=== PATIENT | male | born 2000 | race Caucasian/White ===

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

== ENCOUNTER 2018-04-30 04:22 | Emergency (ER) | payer OTHER, SELFPAY ==
[2018-04-30 04:23] VITALS: BP 138/74; PULSE 99; RESP 16; TEMP 36.9; O2SAT 96; BMI 25.1
--- NOTE | 2018-04-30 04:49 | ED.DCSUM_ITS ---
- ER Visit Summary Date of Service: 04/30/18 Chief Complaint: left ear pain, bleeding History of Present Illness: The patient is a 17 M who presents for 1 day of left ear pain. She states he was at work tonight, working third shift, and noted that his left ear was painful, worsened by the noise at work. He put a finger in his ear and when he took it out there was blood on it. Patient states he has had decreased hearing for the last year and has a long history of chronic ear issues, having had tubes in his ears at the age of 11. He denies any fever, sore throat, rhinorrhea, neck pain, cough, shortness of breath or any other complaints other than the left ear pain. Physical Examination: Vital signs: afebrile, hemodynamically stable, no hypoxia on room air General: well nourished, well developed, in no distress Skin: warm, dry, no rash, no pallor HEENT: normocephalic and atraumatic; PERRL, EOMI, moist mucous membranes, is supple with full active range of motion, no lymphadenopathy; right TM is normal , patient has pain with movement of the external left ear, external ear canal is swollen and macerated with mild erythema, TM is bulging, mildly erythematous with white mass behind it, either guarding, cholesteatoma or pus. Remainder of exam unremarkable. Cardiovascular: regular rate and rhythm without murmurs, no peripheral edema, 2 + pulses all distal extremities Respiratory: No increased work of breathing, lungs are clear to auscultation bilaterally, no rales, rhonchi or wheezing MSK: Moves all extremities, no deformities, normal strength Neuro: Awake and alert, oriented ?4. No facial droop, sensation and motor function intact and symmetric Test Results: [] Emergency Department Course and Treatment: Patient has significant history of chronic ear issues, stating he has had decreased hearing in his ears for over a year now. The supports that patient may have scarring or cholesteatoma of the left eardrum. However he has findings consistent with acute otitis externa, and the appearance of the tympanic membrane is concerning for possible acute otitis media, as the presence of pus behind the eardrum cannot be ruled out. There was no sign of drum rupture. Patient was prescribed antibiotic eardrops for the acute otitis externa. Because of the concern for otitis media, patient was placed on amoxicillin. Patient was strongly encouraged to follow-up with ENT for further evaluation of his ear, especially given that he has had the gradual loss of hearing over the last year. Patient agreed with this plan was discharged home. Treatment Plan: [] Disposition: [] Impression: Left acute otitis externa, left acute otitis media This note was generated with [employer] dictation software. It may contain incorrect words, spelling, and punctuation that were not noted in review of the chart prior to signing ED Disposition - Plan for ED Patient: Disposition: Home or Assisted Living Chief Complaint: Ear Problem Instructions: ED Otitis Media Acute Adult, ED Otitis Externa Prescriptions: Amoxicillin 500 mg PO TID #20 tab Referrals: Jonathan Kee MD [STAFF PHYSICIAN] - 1 Week if not improving Care Physician,No Primary [Primary Care Provider] - Additional Instructions: Your examination showed infection of your left ear canal, which is being treated with antibiotic drops. Use the drops as directed 4 times a day for 7 days. You also have concerning findings for ear infection behind your eardrum. Take the amoxicillin 3 times daily for 7 days as directed, and complete the entire prescription even if you feel better before it is done. Follow-up with the ear nose throat doctor on this paperwork for reevaluation, especially given your history of losing hearing in that ear. If you have any worsening of your condition or any new concerning symptoms, please return immediately to the emergency department for another evaluation.
[2018-04-30] MEDS: Neomycin Sulfate/Polymyxin/Hc Susp 10 ML Bottle 4 DRP OTIC (04:54)
[2018-04-30] MEDS: AMOXICILLIN 500 MG CAPSULE PO (04:54)
[2018-04-30 05:06] VITALS: RESP 17
== END 2018-04-30 05:06 | disposition home or self-care (01) ==
PROVIDERS: Emergency Provider Emergency Medicine
DX: H66.92 Otitis media, unspecified, left ear (principal); H60.502 Unspecified acute noninfective otitis externa, left ear
CPT/HCPCS: 99283

== ENCOUNTER 2018-07-11 16:13 | Emergency (ER) | payer SELFPAY ==
[2018-07-11 16:15] VITALS: BP 122/76; PULSE 81; RESP 18; TEMP 36.1; O2SAT 98; BMI 24.3
[2018-07-11] MEDS: Bupivacaine 0.5%/Epi 1.8 ML Syringe INFILT (16:34)
--- NOTE | 2018-07-11 16:56 | ED.VISSUMM ---
- ER Visit Summary Date of Service: 07/11/18 Chief Complaint: Jaw pain and swelling History of Present Illness: The patient is a 17 M who has been seen at outside facility and attempt was made at I&D dental abscess. Patient states unsuccessful. He was prescribed [place], Naprosyn and amoxicillin. He denies fever, chills or night sweats. He denies history of rheumatic fever, murmur, SPE, IV drug use or being immune suppressed. He denies inability to open or close his mouth completely. He denies change in voice. He denies difficulty swallowing and no respiratory symptoms. He denies rash. He denies headache. He does complain of right-sided jaw pain. Physical Examination: Vital signs noted. He is afebrile. There is swelling of the jaw on the right side, body of the mandible. There is no trismus. There is evidence of prior dental work. He reports he had dental work in February he did not complete the dental work. There is a dental abscess noted buccal side of the right first molar. There is no evidence of Mario's angina. There is submandibular lymphadenopathy. Trachea is midline. There is no stridor. Heart is regular without murmur, gallop or rub. Lungs are clear to auscultation. Test Results: None were obtained Emergency Department Course and Treatment: A dental block was placed using 1.8 cc of Carbocaine. A right inferior alveolar nerve block was placed. The abscess was incised with drainage of purulent material. Treatment Plan: We will change antibiotic to clindamycin, which is the drug of choice for dental infection. Disposition: Outpatient follow-up with dentist. Impression: 1. Dental abscess 2. Alveolar nerve block 3. I&D of dental abscess This note was generated with [employer] dictation software. It may contain incorrect words, spelling, and punctuation that were not noted in review of the chart prior to signing ED Disposition - Plan for ED Patient: Disposition: Home or Assisted Living Chief Complaint: Dental Instructions: Dental Abscess Prescriptions: Clindamycin [Cleocin] 300 mg PO 4X/DAY #80 cap Referrals: Care Physician,No Primary [Primary Care Provider] -
[2018-07-11 17:22] VITALS: BP 126/82; PULSE 78; RESP 16; O2SAT 98
== END 2018-07-11 17:23 | disposition home or self-care (01) ==
PROVIDERS: Emergency Provider Emergency Medicine
DX: K04.7 Periapical abscess without sinus (principal); K02.9 Dental caries, unspecified
CPT/HCPCS: 41800; 64402; 99282

== ENCOUNTER 2019-04-29 11:26 | Emergency (ER) | payer SELFPAY ==
[2019-04-29 11:27] VITALS: BP 149/77; PULSE 98; RESP 18; TEMP 36.4; O2SAT 100; BMI 28.2
--- NOTE | 2019-04-29 12:07 | ED.VISSUMM ---
- ER Visit Summary Date of Service: 04/29/19 Chief Complaint: Ear pain History of Present Illness: The patient is a 18 M who notes drainage from the ear and decreased hearing. States that he was working on his exhaust system of his vehicle and his body was revving the engine and he was videotaping. He noted pain at that time. Physical Examination: Afebrile vital signs stable Gen: Well-nourished well-developed Head: Normocephalic atraumatic Eyes: Perrl EOMI ENT: Right tympanic membrane is ruptured. There is erythema and swelling of the canal. The tympanic membrane itself is bulging erythematous but has fluid coming from the 4 o'clock position clear no rhinorrhea moist mucous membranes Neck: Supple no lymphadenopathy no JVD nontender CVS: Regular rate rhythm no murmurs normal S1-S2 Respiratory: No distress clear to auscultation bilaterally chest nontender Abdomen: Soft nontender nondistended normal bowel sounds no masses Back: Nontender Extremity: Nontender no edema Skin: Normal color no rash Neuro: alert orientated ?3 CN II-XII intact normal strength sensation Psych: Normal affect normal mood Emergency Department Course and Treatment: Patient will be started on Augmentin and Ciprodex. Follow-up with ENT if not improved Impression: 1. Perforated tympanic membrane on the right This note was generated with [employer] dictation software. It may contain incorrect words, spelling, and punctuation that were not noted in review of the chart prior to signing ED Disposition - Plan for ED Patient: Disposition: Home or Assisted Living Instructions: RUPTURED TM, Infected (Adult), EXTERNAL EAR INFECTION (Adult) Prescriptions: Amox/Clavulanate Tablet [Augmentin Tablet] 875 mg PO Q12H #20 tab Prescription Printed Ciprofloxacin HCl/Dexameth [Ciprodex Otic Suspension] 4 drp OTIC (EAR) BID 7 Days #1 bottle Prescription Printed Referrals: Sony Gonzalez MD [STAFF PHYSICIAN] - 1 Week
== END 2019-04-29 12:26 | disposition home or self-care (01) ==
PROVIDERS: Emergency Provider Emergency Medicine
DX: H60.91 Unspecified otitis externa, right ear (principal); H66.91 Otitis media, unspecified, right ear; H72.91 Unspecified perforation of tympanic membrane, right ear; Z72.0 Tobacco use
CPT/HCPCS: 99282

== ENCOUNTER 2020-05-17 18:44 | Emergency (ER) | payer SELFPAY ==
[2020-05-17 18:45] VITALS: BP 160/76; PULSE 96; RESP 15; TEMP 36.3; O2SAT 98; BMI 27.7
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
[2020-05-17] MEDS: Ondansetron 4 MG/2 ML Vial IM (19:03)
== END 2020-05-17 19:54 | disposition home or self-care (01) ==
PROVIDERS: Emergency Provider Student in an Organized Health Care Education/Training Program
DX: S16.1XXA Strain of muscle, fascia and tendon at neck level, initial encounter (principal); S20.219A Contusion of unspecified front wall of thorax, initial encounter; S61.411A Laceration without foreign body of right hand, initial encounter; Y04.2XXA Assault by strike against or bumped into by another person, initial encounter; Y93.9 Activity, unspecified; Y92.9 Unspecified place or not applicable; Y99.9 Unspecified external cause status; F17.200 Nicotine dependence, unspecified, uncomplicated
CPT/HCPCS: 70450; 71045; 72125; 96372; 99282; J2405

== ENCOUNTER 2020-06-04 12:59 | Emergency (ER) | payer SELFPAY ==
[2020-06-04 13:01] VITALS: BP 136/92; PULSE 86; RESP 18; TEMP 36.2; O2SAT 98; BMI 30.8
--- NOTE | 2020-06-04 14:23 | ED.VIS.GEN ---
History of Present Illness Chief Complaint: Dental Informant: Patient Onset: Month(s) - 1 Narrative: On and off recurrent left lower dental pain for the past month. Hot and cold sensitivities. No fevers. Tobacco history. Similar issues in the past. He states he does have a dentist which he followed for extraction of the right lower tooth previously however due to COVID unable to get in to do the left side. States symptoms really act up last evening. Denies any difficulty swallowing. Denies any allergies. Reports penicillins did not work given his previously placed on clindamycin. Prior similar symptoms: Yes Past Medical History - Allergies and Home Meds Allergies/Adverse Reactions: Allergies No Known Allergies Allergy (Verified 05/17/20 18:44) Primary Care Physician: Care Physician,No Primary [Primary Care Provider] - Past Medical History: None Smoking Status: Current every day smoker Review of Systems General: Denies: Chills, Fever, Sweats Eyes: Denies: Visual changes - bilaterally, Diplopia ENT: Reports: - - Dental pain. Denies: Rhinorrhea, Sore throat Cardiovascular: Denies: Chest pain, Palpitations Respiratory: Denies: Dyspnea, Cough, Dyspnea on exertion Gastrointestinal: Denies: Abdominal pain, Nausea, Vomiting, Diarrhea, Melena, Hematochezia Genitourinary: Denies: Dysuria, Hematuria, Frequency Musculoskeletal: Denies: Back pain, Extremity Pain Skin: Denies: Rash, Wounds Neurological: Denies: Headache, Weakness, Numbness Physical Exam Vital Signs/Narrative: Vital Signs Temp Pulse Resp BP Pulse Ox 06/04/20 13:01 97.2 F L 86 18 136/92 H 98 Inital Vital Signs reviewed: Yes General: Well nourished, Well developed, No Acute Distress Head: Normocephalic, Atraumatic Eyes: Perrl, EOMI ENT: Moist mucous membranes, No rhinorrhea, - - There is focal dental carry tooth #21, there is very minimal fluctuance. There is no sublingual edema. Airway patent. Tooth was tender to palpation. Neck: Supple, Nontender, No lymphadenopathy Cardiovascular: Regular rate, Regular rhythm, No murmurs Respiratory: No distress, CTA bilaterally, Chest nontender Abdomen: Soft, Nontender, Nondistended, Normal bowel sounds Back: Nontender, Normal Inspection Extremities: Nontender, No edema Skin: Normal color, No rash Neurological: Alert, Oriented x3, Cranial nerves II-XII grossly intact, Normal Strength, Normal Sensation Psychological: Normal affect, Normal Mood Diagnostic/Tx/Re-eval Patient vitals stable, discussed probably very early abscess at this time. Culprit will be tooth #21. He does have a dentist. He states he would like to try antibiotics. Prescription for clindamycin and ibuprofen written. He will call his dentist for follow-up and definitive care. He will return if any worsening symptoms. All questions were answered. ED Disposition - Plan for ED Patient: Disposition: Home or Assisted Living Diagnosis: Dental abscess Instructions: Dental Abscess Prescriptions: Clindamycin [Cleocin] 450 mg PO TID #90 cap Transmission Status: [id number] Ibuprofen [Motrin] 600 mg PO Q6H PRN PRN #20 tab PRN Reason: Pain Or Fever Transmission Status: [id number] Referrals: Care Physician,No Primary [Primary Care Provider] - Additional Instructions: Call your dentist for follow up and definitive care.
[2020-06-04 15:03] VITALS: RESP 18
== END 2020-06-04 14:32 | disposition home or self-care (01) ==
LOC: ED 14:40
PROVIDERS: Emergency Provider Emergency Medicine
DX: K04.7 Periapical abscess without sinus (principal); F17.200 Nicotine dependence, unspecified, uncomplicated
CPT/HCPCS: 99282

== ENCOUNTER 2020-06-19 07:09 | Emergency (ER) | payer SELFPAY ==
[2020-06-19 07:10] VITALS: BP 149/102; PULSE 100; RESP 17; TEMP 36.4; O2SAT 100; BMI 30.8
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
--- NOTE | 2020-06-19 07:20 | ED.VISSUMM ---
- ER Visit Summary Date of Service: 06/19/20 Chief Complaint: Left flank pain History of Present Illness: The patient is a 19 M with no primary care physician. He reports the abrupt onset of left flank pain approximate 20 minutes ago. The sharp pain that was 10 on 10 at worst and 7-10 currently. Nothing makes this better or worse. He said nausea without vomiting. No diarrhea. His last bowel movement was today. No melena or hematochezia. No dysuria, frequency, or hematuria. Physical Examination: Vitals: Stable. Afebrile. General: Well-nourished and well-developed. Head: Normocephalic atraumatic. Neck: Supple, no lymphadenopathy. No JVD. Nontender. Cardiovascular: Regular rate and rhythm. No murmurs. Respiratory: No respiratory distress. Clear to auscultation bilaterally. Abdominal: Soft, mild left upper quadrant tenderness to palpation, nondistended, normal bowel sounds. No guarding, rebound, or peritoneal signs. Back: Mild left CVA tenderness. Extremities: Nontender, no edema. Skin: Normal color, no rash. Neurologic: Alert and oriented ?3. Cranial nerves II through XII are intact. Normal strength and sensation. Psych: Normal affect. Test Results: Urinalysis shows no evidence of infection. Clinical Impression(s) from Imaging Studies Abdomen/Pelvis CT 06/19/20 07:19 IMPRESSION: Tiny calcification in distal portion of the left ureter causing mild degree of left hydronephrosis and left hydroureter. Electronically Signed: German Mary, at 8:31 EDT , Service support , Emergency Department Course and Treatment: Patient had an IV placed. He was given Toradol and Zofran IV. He is resting more comfortably. Treatment Plan: Patient will be discharged with Cement, naproxen, and Zofran. Instructed to follow-up with Dr. Anguiano in 1 week if not improving. Return to the emergency department for any worsening symptoms. Disposition: To home in improved and stable condition. Impression: 1. Left ureterolithiasis. This note was generated with LifeShield[employer] software. It may contain incorrect words, spelling, and punctuation that were not noted in review of the chart prior to signing ED Disposition - Plan for ED Patient: Instructions: ED Renal Stone w Colic Prescriptions: Naproxen [Naprosyn] 500 mg PO BID #14 tablet Hydrocodone Bitart/Apap 5-325 [[place] 5MG-325MG] 1 tablet PO Q4H PRN PRN 2 Days #10 tablet PRN Reason: Pain Ondansetron [Zofran Odt] 4 mg PO Q8H PRN PRN #10 tablet PRN Reason: Nausea Referrals: José Miguel Anguiano MD [STAFF PHYSICIAN] - 1 Week if not improving
[2020-06-19] MEDS: Ketorolac 30 MG/ML Syringe IV (07:39)
[2020-06-19] MEDS: Ondansetron 4 MG/2 ML Vial IV (07:39)
[2020-06-19] MEDS: 0.9% Normal Saline 1,000 ML 250 ML IV (07:40)
[2020-06-19 08:17] LABS: Color, Urine Straw (Yellow); Glucose, Dipstick Normal (Normal); Ketone-Dipstick Negative (Negative); Leukocyte Esterase-Dipstick Negative /ul (Negative); Nitrite-Dipstick Negative (Negative); Occult Blood-Urine 250 /ul (Negative); Protein-Dipstick Negative (Negative); Squamous Epithelial Cells - UA 0 SEEN /hpf (0-5); Urine Bilirubin Dipstick Negative (Negative); Urine Clarity Clear (Clear); Urine Urobilinogen Normal (Normal)
[2020-06-19 08:26] LABS: Red Blood Cells-Urine 5-10 SEEN /hpf (0-5); White Blood Cells 0-5 SEEN /hpf (0-5)
[2020-06-19 08:27] LABS: Bacteria 1+ /hpf (None Seen); Mucous, Urine 2+ /hpf (<or=2+)
== END 2020-06-19 09:09 | disposition home or self-care (01) ==
LOC: ED 08:05
PROVIDERS: Emergency Provider Emergency Medicine
DX: N13.2 Hydronephrosis with renal and ureteral calculous obstruction (principal); Z72.0 Tobacco use
CPT/HCPCS: 74176; 81001; 96361; 96374; 96375; 99281; 99284; J7030; A4216; J2405

== ENCOUNTER 2020-06-24 12:16 | Emergency (ER) | payer SELFPAY ==
[2020-06-24 12:16] VITALS: BP 138/93; PULSE 78; RESP 16; TEMP 36.3; O2SAT 98; BMI 27.7
--- NOTE | 2020-06-24 13:40 | CT_ITS ---
STUDY: CT ABDOMEN AND PELVIS WITHOUT CONTRAST REASON FOR EXAM: Male, 19 years old. Worsening left flank pain, dx stone 5 days ago RADIATION DOSAGE (If Supplied By Facility): CTDIvol = ( 8.46 ) mGy, DLP = ( 443.77 ) mGycm TECHNIQUE: Transaxial images were obtained from the dome of the diaphragm to the symphysis pubis without oral contrast, and without intravenous contrast. Sagittal and coronal images were reconstructed. Individualized dose optimization techniques were used for this CT. COMPARISON: Comparison is made with prior examination dated 06/19/2020. FINDINGS: Stable partially calcified nodule in the anterior aspect of the right lower lobe. The visualized portions of the heart are within normal limits. Normal liver. Normal gallbladder and extrahepatic biliary system. Normal spleen. Normal pancreas. Normal bilateral adrenal glands. Normal right kidney. Mild residual left hydronephrosis and mildly dilated left ureter without evidence of obstructive uropathy at this time. Normal visualized stomach. Normal small intestine. There are scattered colonic diverticula consistent with diverticulosis. The appendix is visualized and appears normal. Normal abdominal aorta. Normal inferior vena cava. Normal retroperitoneum. Normal urinary bladder. There are sagittal prostatic calcifications. Normal abdominal wall. Normal osseous structures. CT/Abdomen/Pelvis without Cont IMPRESSION: Minimal residual left hydronephrosis and hydroureter without evidence of obstructive uropathy. Electronically Signed: German Hernandez, at 14:34 EDT , Service support ,
--- NOTE | 2020-06-24 13:40 | ED.VISSUMM ---
- ER Visit Summary Date of Service: 06/24/20 Chief Complaint: [Left flank pain] History of Present Illness: The patient is a 19 M [presents to the emergency department with complaint of left flank pain that initially started 5 days ago. Patient was seen in the emergency department 5 days ago and diagnosed with a small kidney stone on the left. Patient's been taking Vicodin as well as naproxen and Zofran for nausea. Patient states that his pain is pretty much been under control until this morning when he had severe pain on the left side once again. Patient took 2 [place] and had no relief. Patient states that the pain seems to come and go in waves. On arrival to the ER he states that it was severe but now just rates it a 6 out of 10. He denies any blood in his urine. Denies any fever. Has had no vomiting. Patient has no medical history otherwise. She has not followed up with urology.] Physical Examination: [HEENT-PERRLA, EOMI. Cranial nerves II through XII grossly intact. TMs clear. Mucous membranes moist. No adenopathy. Cardiovascular-regular rate and rhythm without murmur or ectopy Lungs-clear to auscultation, chest wall stable without crepitus or subcu emphysema Abdomen-normoactive bowel sounds, soft. Patient has some mild tenderness over left lower quadrant with some guarding. There is no rebound, rigidity, or cranial signs. Patient has some mild CVA tenderness on the left. Extremities-intact ?4, normal range of motion, normal pulses, atraumatic] Test Results: [CBC with differential was normal. Chemistries unremarkable. Urinalysis unremarkable. CT flank showed still mild residual left hydro without evidence of ureteral stone or calcifications.] Emergency Department Course and Treatment: [She was given Toradol 30 mg IV while in department and he felt improved.] Treatment Plan: [We will be referred to urology for follow-up. I will be given him a prescription for a few more [place] for pain. Patient advised to return if fever, vomiting, or condition should worsen anyway.] Disposition: [Discharged home in stable condition] Impression: [Passed kidney stone] This note was generated with Zipide[employer] software. It may contain incorrect words, spelling, and punctuation that were not noted in review of the chart prior to signing ED Disposition - Plan for ED Patient: Referrals: Care Physician,Rosana Primary [Primary Care Provider] -
[2020-06-24] MEDS: 0.9% Normal Saline 1,000 ML 125 ML IV (13:56)
[2020-06-24] MEDS: Ketorolac 30 MG/ML Syringe IV (13:56)
[2020-06-24 14:04] LABS: Bacteria 0 SEEN /hpf (None Seen); Mucous, Urine 0 SEEN /hpf (<or=2+); Squamous Epithelial Cells - UA 0 SEEN /hpf (0-5); White Blood Cells 0 SEEN /hpf (0-5)
[2020-06-24 14:16] LABS: Absolute Lymphocyte Count 2.06 X10^3/uL (0.83-4.51); Absolute Neutrophil Count 10.7 X10^3/uL (2.0-7.7); Basophil# 0.05 X10^3/uL; Basophil% 0.3 % (0-1); Eosinophil# 0.35 X10^3/uL; Eosinophils% 2.4 % (0-5); Hemoglobin 14.3 g/dL (13.0-16.5); Lymphocyte # 2.06 X10^3/ul (4.0); Lymphocyte % 14.2 % (19-41); Mean Corp Hgb Conc 32.5 g/dL (32-36); Mean Corpuscular Hgb 28.8 pg (27.0-32.0); Mean Corpuscular Volume 88.5 fL (80-94); Mean Platelet Vol. 9.8 fl (6.2-12.0); Monocyte# 1.29 X10^3/uL; Monocyte% 8.9 % (0-10); NRBC Flagged by Analyzer 0 % (0-5); Neutrophil # 10.66 X10^3/uL (2.7-7.7); Neutrophil % 73.6 % (47-70); Platelet Count 306 K/mm3 (150-450); RBC Distribution Width CV 12.5 % (11.6-14.6); Red Blood Count 4.97 M/mm3 (4.6-6.2); White Blood Count 14.5 K/mm3 (4.4-11.0)
[2020-06-24 14:17] LABS: Color, Urine Yellow (Yellow); Glucose, Dipstick Normal (Normal); Ketone-Dipstick Negative (Negative); Leukocyte Esterase-Dipstick Negative /ul (Negative); Nitrite-Dipstick Negative (Negative); Occult Blood-Urine 10 /ul (Negative); Protein-Dipstick Negative (Negative); Urine Bilirubin Dipstick Negative (Negative); Urine Clarity Sl. Cloudy (Clear); Urine Urobilinogen Normal (Normal)
[2020-06-24 14:22] LABS: Anion Gap 4 (5-15); BUN 13 mg/dL (7-18); BUN/Creat Ratio 12.7 RATIO (10-20); Calcium,Total 9.4 mg/dL (8.5-10.1); Chloride 109 mmol/L (98-107); Creatinine, Serum 1.02 mg/dL (0.70-1.30); EST Glomerular Filtration Rate 97 mL/min (>60); Est Glom Filt Rate - Afr Amer 118 mL/min (>60); Estimated Creatinine Clearance 133.19 ml/min; Glucose 94 mg/dL (74-106); Sodium Level 141 mmol/L (136-145)
[2020-06-24 14:28] LABS: Red Blood Cells-Urine 0-5 SEEN /hpf (0-5)
--- NOTE | 2020-06-24 14:53 | DCINST.ED_ITS ---
ED Disposition - Plan for ED Patient: Instructions: ED RENAL STONE Passed Prescriptions: Hydrocodone Bitart/Apap 5-325 [[place] 5MG-325MG] 1 tab PO Q4H PRN PRN 2 Days #10 tab PRN Reason: Pain Prescription Printed Referrals: Care Physician,No Primary [Primary Care Provider] - José Miguel Anguiano MD [STAFF PHYSICIAN] -
[2020-06-24 15:03] VITALS: BP 108/67; PULSE 52; RESP 16; O2SAT 100
== END 2020-06-24 15:04 | disposition home or self-care (01) ==
LOC: ED 14:01
PROVIDERS: Emergency Provider Emergency Medicine
DX: N20.0 Calculus of kidney (principal); Z72.0 Tobacco use
CPT/HCPCS: 74176; 80048; 81001; 85025; 96361; 96374; 99283; J7030; A4216

== ENCOUNTER 2020-07-03 19:44 | Emergency (ER) | payer SELFPAY ==
[2020-07-03 19:44] VITALS: PULSE 89; RESP 17; TEMP 36.5; O2SAT 98; BMI 27.1
[2020-07-03 19:48] VITALS: BP 153/99
[2020-07-03 20:08] LABS: Absolute Lymphocyte Count 3.12 X10^3/uL (0.83-4.51); Absolute Neutrophil Count 8.2 X10^3/uL (2.0-7.7); Basophil# 0.04 X10^3/uL; Basophil% 0.3 % (0-1); Eosinophil# 0.36 X10^3/uL; Eosinophils% 2.7 % (0-5); Hematocrit 41.7 % (40-54); Hemoglobin 13.7 g/dL (13.0-16.5); Lymphocyte # 3.12 X10^3/ul (4.0); Lymphocyte % 23.7 % (19-41); Mean Corp Hgb Conc 32.9 g/dL (32-36); Mean Corpuscular Hgb 29.1 pg (27.0-32.0); Mean Corpuscular Volume 88.5 fL (80-94); Mean Platelet Vol. 9.5 fl (6.2-12.0); Monocyte# 1.43 X10^3/uL; Monocyte% 10.8 % (0-10); NRBC Flagged by Analyzer 0 % (0-5); Neutrophil # 8.18 X10^3/uL (2.7-7.7); Neutrophil % 62.1 % (47-70); Platelet Count 296 K/mm3 (150-450); RBC Distribution Width CV 12.5 % (11.6-14.6); RBC Distribution Width SD 40.7 fl (35.1-43.9); Red Blood Count 4.71 M/mm3 (4.6-6.2); White Blood Count 13.2 K/mm3 (4.4-11.0)
[2020-07-03 20:11] LABS: Bacteria 0 SEEN /hpf (None Seen); Mucous, Urine 0 SEEN /hpf (<or=2+); Squamous Epithelial Cells - UA 0 SEEN /hpf (0-5); White Blood Cells 0 SEEN /hpf (0-5)
[2020-07-03] MEDS: 0.9% Normal Saline 1,000 ML 1000 ML IV (20:12)
[2020-07-03] MEDS: Ondansetron 4 MG/2 ML Vial IV (20:13)
[2020-07-03] MEDS: Morphine 4 MG/ML Syringe IV (20:13)
[2020-07-03 20:17] LABS: Color, Urine Yellow (Yellow); Glucose, Dipstick Normal (Normal); Ketone-Dipstick Negative (Negative); Leukocyte Esterase-Dipstick Negative /ul (Negative); Nitrite-Dipstick Negative (Negative); Occult Blood-Urine 150 /ul (Negative); Protein-Dipstick Negative (Negative); Specific Gravity, Urine 1.015 (1.002-1.030); Urine Bilirubin Dipstick Negative (Negative); Urine Clarity Clear (Clear); Urine Urobilinogen Normal (Normal)
[2020-07-03 20:20] LABS: Anion Gap 7 (5-15); BUN 19 mg/dL (7-18); Calcium,Total 8.7 mg/dL (8.5-10.1); Chloride 106 mmol/L (98-107); Creatinine, Serum 1.27 mg/dL (0.70-1.30); EST Glomerular Filtration Rate 76 mL/min (>60); Est Glom Filt Rate - Afr Amer 91 mL/min (>60); Estimated Creatinine Clearance 106.98 ml/min; Glucose 103 mg/dL (74-106); Potassium 3.7 mmol/L (3.5-5.1); Sodium Level 140 mmol/L (136-145)
--- NOTE | 2020-07-03 20:27 | ED.VIS.GEN ---
History of Present Illness Chief Complaint: Flank Pain Informant: Patient Onset: Days Context: Gradual Onset Timing: Continuous Current Severity: Moderate Maximum Severity: Moderate Narrative: Patient is a 19-year-old male that presents to the emergency department with left-sided flank pain and dysuria. The patient has been seen here twice this month for similar symptoms. He did have a CT about 2 weeks ago which showed a small obstructing stone at the UVJ. He returned 5 days later with persistent pain. CT showed no evidence of acute stone. He states that he urinated and there was burning and he feels like he may have passed out. The past 2 days, has begun to have some colicky pain in his left back. Is felt nauseated. He denies any fevers or chills. He does admit to pain with urination. He is otherwise been in his normal state of health. Prior similar symptoms: Yes Recent Illness/Hospitalization: No Past Medical History - Allergies and Home Meds Allergies/Adverse Reactions: Allergies No Known Allergies Allergy (Verified 07/03/20 19:44) Primary Care Physician: Care Physician,No Primary [Primary Care Provider] - Prior records reviewed: Yes Past Medical History: None Surgical History: noncontributory Smoking Status: Current every day smoker Review of Systems General: Denies: Chills, Fever, Sweats Eyes: Denies: Visual changes - bilaterally, Diplopia ENT: Denies: Rhinorrhea, Sore throat Cardiovascular: Denies: Chest pain, Palpitations Respiratory: Denies: Dyspnea, Cough, Dyspnea on exertion Gastrointestinal: Reports: Nausea. Denies: Abdominal pain, Vomiting, Diarrhea, Melena, Hematochezia Genitourinary: Reports: Dysuria, Frequency. Denies: Hematuria Musculoskeletal: Denies: Back pain, Extremity Pain Skin: Denies: Rash, Wounds Neurological: Denies: Headache, Weakness, Numbness Physical Exam Vital Signs/Narrative: Vital Signs Temp Pulse Resp BP Pulse Ox 07/03/20 19:48 153/99 H 07/03/20 19:44 97.7 F L 89 17 98 Inital Vital Signs reviewed: Yes General: Well nourished, Well developed, No Acute Distress Head: Normocephalic, Atraumatic Eyes: Perrl, EOMI ENT: Moist mucous membranes, No rhinorrhea Neck: Supple, Nontender Cardiovascular: Regular rate, Regular rhythm, No murmurs Respiratory: No distress, CTA bilaterally, Chest nontender Abdomen: Soft, Nontender, Nondistended, Normal bowel sounds Back: Nontender, Normal Inspection Extremities: Nontender, No edema Skin: Normal color, No rash Neurological: Alert, Oriented x3, Cranial nerves II-XII grossly intact, Normal Strength, Normal Sensation Psychological: Normal affect, Normal Mood Diagnostic/Tx/Re-eval Abnormal Lab Results 07/03/20 07/03/20 07/03/20 19:57 19:57 20:01 WBC 13.2 H RBC 4.71 Hgb 13.7 Hct 41.7 MCV 88.5 MCH 29.1 MCHC 32.9 RDW Std Deviation 40.7 RDW Coeff of Rafat 12.5 Plt Count 296 MPV 9.5 Immature Gran % (Auto) 0.400 Neut % (Auto) 62.1 Lymph % (Auto) 23.7 [place] % (Auto) 10.8 H Eos % (Auto) 2.7 Baso % (Auto) 0.3 Absolute Neuts (auto) 8.2 H Absolute Lymphs (auto) 3.12 Nucleated RBC % 0 Sodium 140 Potassium 3.7 Chloride 106 Carbon Dioxide 27.0 Anion Gap 7 BUN 19 H Creatinine 1.27 Estim Creat Clear Calc 106.98 Est GFR (MDRD) Af Amer 91 Est GFR (MDRD) Non-Af 76 BUN/Creatinine Ratio 15.0 Glucose 103 Calcium 8.7 Urine Color Yellow Urine Clarity Clear Urine pH 7.0 Ur Specific [place] 1.015 Urine Protein Negative Urine Glucose (UA) Normal Urine Ketones Negative Urine Occult Blood 150 H Urine Nitrite Negative Urine Bilirubin Negative Urine Urobilinogen Normal Ur Leukocyte Esterase Negative Urine RBC 5-10 SEEN Urine WBC 0 SEEN Ur Squamous Epith Cells 0 SEEN Urine Bacteria 0 SEEN Urine Mucus 0 SEEN - Medical Decision Making The patient presents with left-sided flank pain. He had a CT done 10 days ago which was unremarkable. There is no evidence of stone but there was some mild hydro-. IV was established. The patient was treated with morphine with no improvement. Urine did show some blood. Renal function is minimally increased, but still within normal limits. Patient had persistent pain. He underwent CT which does demonstrate persistent stone and mild hydro-. Patient was given analgesics. Patient will be reevaluated. I do feel as long as his pain is controlled he can safely be discharged home. Impression 1. 1 mm left urolithiasis ED Disposition - Plan for ED Patient: Instructions: ED Renal Stone w Colic Prescriptions: Tamsulosin HCl [Flomax] 0.4 mg PO DAILY #7 cap Prescription Printed Hydrocodone Bitart/Apap 5-325 [[place] 5MG-325MG] 1 tab PO Q6H PRN PRN 3 Days #10 tab PRN Reason: Pain Prescription Printed Ondansetron [Zofran Odt] 4 mg PO Q8H PRN PRN #10 tab PRN Reason: Nausea Prescription Printed Referrals: José Miguel Anguiano MD [STAFF PHYSICIAN] -
[2020-07-03 20:30] LABS: Red Blood Cells-Urine 5-10 SEEN /hpf (0-5)
--- NOTE | 2020-07-03 20:45 | CT_ITS ---
STUDY: CT ABDOMEN AND PELVIS WITHOUT CONTRAST REASON FOR EXAM: Male, 19 years old. Left flank pain, dysuria, renal infarct RADIATION DOSAGE (If Supplied By Facility): CTDIvol = ( 13.27 ) mGy, DLP = ( 1395.77 ) mGycm TECHNIQUE: Transaxial images were obtained from the dome of the diaphragm to the symphysis pubis without oral contrast, and without intravenous contrast. Sagittal and coronal images were reconstructed. Individualized dose optimization techniques were used for this CT. COMPARISON: 24 June 2020, 19 June 2020 FINDINGS: There is a benign calcified granuloma in the anterior basal segment of the right lower lobe. Remainder of the lung bases are clear. Pleural surfaces are intact. Left distal ureteral 1 mm calculus has progressively migrated from the distal ureter to the left ureterovesical junction. There is adjacent bladder wall and distal left ureteral edema with mild hydronephrosis and decreased left renal perfusion compared to the right, indicative of of some degree of obstruction. Contralateral right collecting system is clear and right kidney is normal. There are no renal masses. 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 There are no renal infarct. Remainder of abdominal structures are normal. CT/Abdomen/Pelvis W IV Cont ONLY IMPRESSION: 1. Descending left distal ureteral 1 mm stone, now at ureterovesical junction with presumably low-grade partial obstruction. 2. No renal infarcts. Electronically Signed: Shyam Rosa, at 21:51 EDT Tel , Service support ,
--- NOTE | 2020-07-03 20:48 | ED.RN ---
PT MOTHER REQUESTING TO BE CONTACTED WITH WHEN DETERMINED ADMIT OR D/C. PT GAVE PERMISSION FOR MOTHER JUNI TO RECEIVE UPDATES. [phone]
[2020-07-03] MEDS: Ketorolac 30 MG/ML Syringe IV (21:37)
[2020-07-03] MEDS: HYDROmorphone 1 MG/ML Syringe IV (21:37)
[2020-07-03 21:43] VITALS: BP 163/91; PULSE 85; RESP 16; O2SAT 98
[2020-07-03 22:59] VITALS: BP 146/89; PULSE 78; RESP 18
== END 2020-07-03 23:02 | disposition home or self-care (01) ==
LOC: ED 20:40
PROVIDERS: Emergency Provider Emergency Medicine
DX: N13.2 Hydronephrosis with renal and ureteral calculous obstruction (principal); F17.200 Nicotine dependence, unspecified, uncomplicated; Z79.899 Other long term (current) drug therapy
CPT/HCPCS: 74177; 80048; 81001; 85025; 96361; 96374; 96375; 99282; J7030; Q9967; A4216; J2405

== ENCOUNTER 2021-08-04 11:32 | Emergency (ER) | payer SELFPAY ==
[2021-08-04 11:33] VITALS: BP 126/89; PULSE 98; RESP 16; TEMP 36.4; O2SAT 96; BMI 26.9
[2021-08-04 11:35] VITALS: BP 126/89; PULSE 98; RESP 16; TEMP 36.4; O2SAT 96
--- NOTE | 2021-08-04 12:04 | ED.VIS.GI ---
HPI HPI - GI History of Present Illness Chief Complaint: Nausea/Vomiting Informant: patient Abdominal Pain/Flank Pain Onset: Yesterday Context: Gradual Onset Timing: Continuous Current Severity: Mild Maximum Severity: Mild Nausea/Vomiting/Emesis GI Symptom: Positive for Nausea and Vomiting Onset: Today and Yesterday Severity: Mild Diarrhea/Melena/Hematochezia GI Symptom: Positive for Diarrhea; Negative for Melena and Hematochezia Onset: Today Stool Quality: Positive for Loose Severity: Mild Associated Symptoms Associated Symptoms: Negative for Dysuria, Frequency and Hematuria Narrative Narrative: 18-year-old male no sniffing past medical or surgical history. States yesterday started having nausea vomiting and diarrhea. States today is unable to keep anything down. Denies fever or chills. No significant cough or shortness of breath. No recent hospitalization. He has not been vaccinated for Covid. He does not want to be tested for Covid. Prior similar symptoms: Yes Recent Illness/Hospitalization: No PFSH PFSH Medical History no medical history Home Medications naproxen 500 mg PO BID #14 tab 06/19/20 [Rx Last Taken Unknown] ondansetron 4 mg PO Q8H PRN PRN #10 tab 06/19/20 [Rx Last Taken Unknown] ondansetron 4 mg PO Q8H PRN PRN #10 tab 07/03/20 [Rx Last Taken Unknown] tamsulosin 0.4 mg PO DAILY #7 cap 07/03/20 [Rx Last Taken Unknown] ondansetron 4 mg PO Q8H PRN 3 Days #7 tab 08/04/21 [Rx Last Taken Unknown] Allergy/AdvReac Type Severity Reaction Status Date / Time No Known Allergies Allergy Verified 07/03/20 19:44 Social History Smoking Status: Current every day smoker tobacco type: cigarettes alcohol intake: never ROS ROS ED ROS Narrative Nausea, vomiting and diarrhea. Review of Systems ROS Unobtainable: Denies due to encephalopathy Constitutional Constitutional ED: Denies fever(s) ENT ENT ED: Denies ear pain or sore throat Cardiovascular Cardiovascular: Denies chest pain Respiratory/Chest Respiratory/Chest: Denies cough or dyspnea Gastrointestinal Gastrointestinal: Reports diarrhea, nausea and vomiting; Denies abdominal pain, constipation or melena Genitourinary Genitourinary ED: Denies dysuria Musculoskeletal Musculoskeletal: Denies myalgias Integumentary Denies rash Neurologic Neurologic: Denies headache(s) Psychiatric Psychiatric: Denies depression Endocrine Endocrinology: Denies polyuria Hematologic/Lymphatic Hematologic/Lymphatic: Denies easy bruising Allergic/Immunologic Allergic/Immunologic ED: Denies urticaria EXAM Physical Exam Narrative Exam Narrative: 18-year-old male no acute distress vital signs stable afebrile. He does not look septic or toxic. He does not look sick nor severely dehydrated. HEENT exam myelogenic members. Neck nontender. Lungs clear auscultation bilaterally. Heart regular rhythm no murmur. Rate around 100. Abdomen soft nontender normal bowel sounds no peritoneal signs. No distention. Moving all 4 extremities nontender no edema. Neurologically is awake and alert with no focal motor deficits. Const Vital Signs: 08/04/21 11:33 08/04/21 11:35 Temperature 97.6 F L 97.6 F L Temperature Source Temporal Temporal Pulse Rate 98 98 Respiratory Rate 16 16 Blood Pressure 126/89 H 126/89 H Blood Pressure Mean 101 101 Pulse Ox 96 96 Oxygen Delivery Method Room Air Room Air Positive well nourished and well developed; Negative for obese, cachectic, contractures or unkempt General Appearance ED: well developed and NAD; Negative for unkempt, cachectic, contractures or pallor Nutritional Appearance: Negative for cachectic or obese HEENT Reports moist mucous membranes normocephalic and atraumatic; Negative for trauma or tenderness Eyes PERRL and EOMs intact bilaterally Neck no lymphadenopathy, supple and no JVD General: Negative for tenderness Resp normal respiratory effort and clear to auscultation bilaterally Auscultation: Negative for rales, rhonchi or wheezes Cardio regular rate, regular rhythm, S1 normal heart sound, S2 normal heart sound and no murmurs GI non-tender, non-distended and no masses Auscultation: normoactive bowel sounds Palpation: soft; Negative for tender, guarding or rigid Back/Spine no CVA tenderness General Back: Negative for CVA tenderness Extremity full ROM General Extremety ED: Negative for edema or tenderness General Extremity: Negative for edema Neuro moves all extremities Sensorium / Orientation: alert, oriented to person, oriented to place and oriented to time; Negative for orientation impaired, confused, lethargic or stuporous Motor Exam: strength 5/5 throughout Psych mental status grossly normal Appearance: Negative for unkempt Skin no wounds General Skin Exam: Negative for jaundice or pallor Lesions: no lesions Rashes: no rashes MDM MDM MDM Narrative Medical decision making narrative: 20-year-old male with nausea vomiting and diarrhea consistent with a viral gastroenteritis. Patient be treated with IV fluids and Zofran. I offered him but he deferred Covid testing. Repeat exam patient is doing well at 1:05 PM. Nausea is resolved. He is able to drink a glass of water without any difficulty. His abdomen is benign. He is comfortable being discharged home. Discharge Plan Triage Chief Complaint: Nausea/Vomiting ED Provider: Socrates Starr Dx/Rx/DC Orders Clinical Impression: Viral gastroenteritis Instructions: Viral Gastroenteritis Prescriptions: New ondansetron 4 mg tablet,disintegrating 4 mg PO Q8H PRN (Reason: nausea and vomiting) 3 Days Qty: 7 RF: 0 No Action ondansetron 4 MG tablet 4 mg PO Q8H PRN PRN (Reason: Nausea) Qty: 10 RF: 0 naproxen 500 MG tablet 500 mg PO BID Qty: 14 RF: 0 tamsulosin 0.4 MG capsule 0.4 mg PO DAILY Qty: 7 RF: 0 ondansetron 4 MG tablet 4 mg PO Q8H PRN PRN (Reason: Nausea) Qty: 10 RF: 0 Primary Care Provider: Care Physician,No Primary Referrals: Shailesh Zarate MD [STAFF PHYSICIAN] - 3-5 Days if not improving Care Physician,No Primary [Primary Care Provider] - Activity Restrictions/Additional Instructions: Plenty of fluids and rest and slowly increase diet as tolerated. Zofran as needed for nausea. Follow-up if not improving or return if feeling worse. Disposition Disposition: Home, Self Care
[2021-08-04] MEDS: 0.9% Normal Saline 1,000 ML 1000 ML IV (12:09)
[2021-08-04] MEDS: Ondansetron 4 MG/2 ML Vial IV (12:10)
[2021-08-04 13:12] VITALS: PULSE 76; RESP 15; O2SAT 99
== END 2021-08-04 13:13 | disposition home or self-care (01) ==
PROVIDERS: Emergency Provider Emergency Medicine
DX: A08.4 Viral intestinal infection, unspecified (principal); F17.210 Nicotine dependence, cigarettes, uncomplicated; Z79.1 Long term (current) use of non-steroidal anti-inflammatories (NSAID); Z79.899 Other long term (current) drug therapy
CPT/HCPCS: 96361; 96374; 99283; J7030; A4216; J2405